=== PATIENT | male | born 1965 | race Caucasian/White ===

== ENCOUNTER 2016-06-21 08:02 | Day surgery (SDC) | payer BC ==
[2016-06-18 16:16] VITALS: BMI 40.7
--- NOTE | 2016-06-20 11:29 | HP ---
DATE OF ADMISSION: CHIEF COMPLAINT: Right knee pain. 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 He was stepping out of a shower when he felt a pop in his knee. He has had persistent pain, popping, and giving way ever since. He has tried medications in addition to an injection with only partial temporary relief. PAST MEDICAL HISTORY: Negative. CURRENT MEDICATIONS: Motrin. He denies drug allergies. FAMILY HISTORY: Significant for cancer and rheumatoid arthritis. SOCIAL HISTORY: Significant for previous tobacco use. A sixteen-point review of systems otherwise reviewed and is noncontributory. On examination, the patient is approximately 5 feet 11 inches, 280 pounds of endomorphic habitus. HEENT exam is nonfocal. Neck is supple. He has painless passive motion of the right hip. Straight leg raise is negative. Active motion of the right knee -8 to 110 degrees of flexion. He has a moderate effusion. He is tender about the medial joint line. Collaterals are stable, Oriana's negative, Efren's elicits medial pain. He has genu varum alignment. His distal neurovascular exam appears to be intact in the right lower extremity. X-rays to include weight-bearing notch, lateral, and merchant views of the right knee obtained in the office show moderate medial compartment narrowing. MRI report of the right knee shows a posterior medial meniscal tear in addition to increased signal involving the medial collateral ligament. IMPRESSION: 1. Right knee internal derangement with symptomatic medial meniscal tear. 2. Moderate right knee medial compartment osteoarthrosis. 3. Increased body mass index. RECOMMENDATIONS: I talked to the patient at length regarding his treatment options. He is having persistent pain and mechanical symptoms despite conservative measures. After thorough discussion, he opts to proceed with surgery. We will plan to proceed with arthroscopic evaluation with possible partial medial meniscectomy. Risks and benefits are discussed at length in layman's terms.
[~2016-06-21 08:02] MED LIST: DEXAMETHASONE SOD PHOSPHATE 10 MG/ML 1 ML VIAL IV ONE; LACTATED RINGERS 1,000 ML IV SCH; MIDAZOLAM 2 MG/2 ML VIAL IV PRN; ONDANSETRON 4 MG/2 ML VIAL IVP ONE; SCOPOLAMINE 1.5MG/72HR PATCH TRANSDERM ONE; ceFAZolin 3 GM in SODIUM CHLORIDE 0.9% 100 ML IVPB ONE
[2016-06-21] MEDS ORDERED: LIDOCAINE 1% 20 ML VIAL (10MG/ML) FOR IV START INTRADERMA ONE (08:42)
[2016-06-21] MEDS ORDERED: fentaNYL (PF) 50 MCG/ML 2 ML AMP ONE (09:48)
[2016-06-21] MEDS ORDERED: LIDOCAINE 1% INJ 10MG/ML (20 ML MDV) ONE (09:48)
[2016-06-21] MEDS ORDERED: MIDAZOLAM 2 MG/2 ML VIAL ONE (09:48)
[2016-06-21] MEDS ORDERED: PROPOFOL 10 MG/ML 20 ML VIAL IV ONE (09:48)
[2016-06-21] MEDS ORDERED: HYDROmorphone (PF) 1 MG/ML ONE (09:48)
[2016-06-21] MEDS ORDERED: GLYCOPYRROLATE 0.2 MG/ML 2 ML VIAL ONE (09:48)
[2016-06-21] MEDS ORDERED: diphenhydrAMINE 50 MG/ML 1 ML VIAL ONE (09:48)
[2016-06-21] MEDS: HYDROmorphone 1 MG/ML 1 ML SYRINGE IVP PRN ×4 (10:40→11:12)
--- NOTE | 2016-06-21 10:41 | P.OP ---
Date of Procedure: 06/21/16 Preoperative Diagnosis: Right knee internal derangement Postoperative Diagnosis: Right knee posterior medial meniscal tear/anterior lateral meniscal tear/grade 3 chondral injury distal lateral medial femoral condyle/large medial patellofemoral plica Procedure(s) Performed: Right knee arthroscopic partial medial meniscectomy/partial lateral meniscectomy /medial femoral chondrectomy/plica resection Anesthesia: GETA Surgeon: Jeremiah Vásquez Estimated Blood Loss (ml): 10 Pathology: none sent Condition: stable Disposition: PACU Indications for Procedure: The patient is a 51-year-old male presents with progressive right knee pain and mechanical symptoms after previous twisting injury. He tried conservative measures with persistence of his symptoms. A discussion of the risks and benefits of operative intervention versus continued conservative measures was made with the patient. He opted proceed with surgery. Operative risks to include infection, neurovascular injury, development of blood clots, possible incomplete resolution of symptoms, possible need for subsequent procedures was discussed. Informed consent was obtained. Operative Findings: As below Description of Procedure: The patient was brought to the operating room, and after induction of general anesthesia examined the right knee. Collaterals were stable, Oriana was negative, and posterior drawer was negative. The right lower extremity was prepped and draped in a normal fashion. A superior lateral portal was made through a 3 mm skin incision superior and lateral to the patella. This was used for outflow. A lateral portal was made through a 5 mm vertical skin incision lateral to the patellar tendon above the joint line. Diagnostic arthroscopy was performed. A medial portal was made through a similar incision medial to the patella tendon above the joint line. On inspection the medial compartment, he is noted have a complex tear involving the posterior horn medial meniscus in the white-white junction. This was debrided back to stable base with straight baskets and a motorized shaver. The edges were contoured. A corresponding grade 2/3 chondral injury was noted involving the distal lateral portion the medial femoral condyle. There was a loose chondral fragment debrided back to stable base with a motorized shaver. On inspection of the notch, the anterior cruciate ligament was intact. On inspection of the lateral compartment a flap tear involving the anterior aspect of the lateral meniscus in the white-white junction was noted. The posterior horn appeared to be intact. The was debrided back to a stable base with a motorized shaver. Grade 2 chondral changes were noted involving the medial portion of the lateral tibial plateau. No loose chondral fragments were noted. On inspection of the patellofemoral articulation, there was grade 2 chondral changes however no loose chondral fragments. A large plica was noted medially that appeared to impinge on the medial femoral condyle through the arc of motion. This was debrided with motorized shaver. The gutters were clear debris. The knee was then thoroughly irrigated. The portals were closed with Steri-Strips. A sterile dressing was applied in addition to a compression stocking. The patient was awoken from general anesthesia and transferred to the recovery room in good condition. Blood loss was estimated at 10 mL. No complications were incurred.
[2016-06-21 10:43] VITALS: TEMP 97.6
[2016-06-21 12:11] VITALS: RESP 18
[2016-06-21] MEDS ORDERED: HYDROcodone/APAP 10-325MG 1 EACH TAB PO ONE (12:22)
[2016-06-21 12:26] VITALS: BP 135/78; PULSE 89
== END 2016-06-21 13:00 | disposition home or self-care (01) ==
LOC: OR 08:02
PROVIDERS: ATTEND Orthopaedic Surgery
DX: S83.241A Other tear of medial meniscus, current injury, right knee, initial encounter (principal); S83.281A Other tear of lateral meniscus, current injury, right knee, initial encounter; M67.51 Plica syndrome, right knee; M23.91 Unspecified internal derangement of right knee; M17.11 Unilateral primary osteoarthritis, right knee; Z68.39 Body mass index [BMI] 39.0-39.9, adult; X58.XXXA Exposure to other specified factors, initial encounter; Y93.E1 Activity, personal bathing and showering; Y92.89 Other specified places as the place of occurrence of the external cause; Z79.1 Long term (current) use of non-steroidal anti-inflammatories (NSAID); Z79.891 Long term (current) use of opiate analgesic; Z79.899 Other long term (current) drug therapy; Z88.8 Allergy status to other drugs, medicaments and biological substances; Z87.891 Personal history of nicotine dependence
CPT/HCPCS: 29880; J2250; J1200; J1100; J0690; J2405; J2001; J3010; J1170; J2704

== ENCOUNTER 2019-08-11 12:57 | Emergency (ER) | payer BC ==
--- NOTE | 2019-08-11 13:14 | ED ---
General Adult HPI - General Stated complaint: TIA Time Seen by Provider: 08/11/19 12:58 Source: patient, EMS, RN notes reviewed Mode of arrival: EMS Limitations: no limitations - History of Present Illness Initial comments: Patient is a pleasant 54-year-old male presenting to the emergency department for change in mental status. Patient is unclear on exact onset however is aware that it was after 11 AM today. Patient states he did have a headache that is somewhat severe and started quick. Patient states this is mid frontal but does radiate towards the back. Patient states headache continues. Patient states he did become sweaty. Patient states he is having problems with his thought process. Patient states he is having problems putting things together and seems to be taking some extra time to process his thoughts. Patient did feel off balance however that has resolved. No isolated arm or leg weakness. No paresthesias. No history of similar symptoms previously. 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 - Related Data Home Medications Medication Instructions Recorded Confirmed ALPRAZolam [Xanax] 1 mg PO TID PRN 08/11/19 08/11/19 Hydrocodone/Acetaminophen [[place] 1 tab PO Q6H PRN 08/11/19 08/11/19 10-325] Rosuvastatin Calcium 10 mg PO HS 08/11/19 08/11/19 buPROPion XL [Wellbutrin Xl] 150 mg PO DAILY 08/11/19 08/11/19 Allergies Allergy/AdvReac Type Severity Reaction Status Date / Time No Known Allergies Allergy Verified 08/11/19 14:51 Review of Systems ROS Statement: Those systems with pertinent positive or pertinent negative responses have been documented in the HPI. ROS Other: All systems not noted in ROS Statement are negative. Constitutional: Denies: fever Eyes: Denies: eye pain ENT: Denies: ear pain Respiratory: Denies: cough, dyspnea Cardiovascular: Denies: chest pain Endocrine: Denies: fatigue Gastrointestinal: Denies: abdominal pain Genitourinary: Denies: dysuria Musculoskeletal: Denies: back pain Skin: Denies: rash Neurological: Reports: as per HPI, headache. 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 (last chemo and radiation tx October 2015), Spinal Stenosis and chronic back pain., Right knee pain. History of Any Multi-Drug Resistant Organisms: None Reported Past Surgical History: Appendectomy, Back Surgery Additional Past Surgical History / Comment(s): tumor removal, Lower Back surgery x2. Past Anesthesia/Blood Transfusion Reactions: No Reported Reaction Past Psychological History: No Psychological Hx Reported Smoking Status: Former smoker Past Alcohol Use History: Rare Additional Past Alcohol Use History / Comment(s): QUIT SMOKING 1 YEAR AGO. SMOKED FOR 28 YRS. SMOKED APPROX 1 PPD. Past Drug Use History: None Reported - Past Family History Mother Family Medical History: No Reported History General Exam Limitations: no limitations General appearance: alert, in no apparent distress Head exam: Present: normocephalic Eye exam: Present: normal appearance, PERRL, EOMI. Absent: nystagmus ENT exam: Present: normal oropharynx Neck exam: Present: normal inspection Respiratory exam: Present: normal lung sounds bilaterally. Absent: chest wall tenderness Cardiovascular Exam: Present: regular rate, normal rhythm Expanded Peripheral pulses: 2+: Radial (R), Radial (L), Dorsalis Pedis (R), Dorsalis Pedis (L) GI/Abdominal exam: Present: soft. Absent: tenderness Extremities exam: Present: normal inspection. Absent: pedal edema, calf tenderness Neurological exam: Present: alert, oriented X3, CN II-XII intact, other (No slurred speech. Patient does have occasional pause with speaking or thought process) Expanded Neurological exam: Present: protecting the airway Patient oriented to: Present: person, place, time Cranial nerves: EOM's Intact: Normal, Facial Sensation: Normal Sensory exam: Upper Extremity Light Touch: Normal, Lower Extremity Light Touch: Normal Motor strength exam: RUE: 5, LUE: 5, RLE: 4 (Patient states it's difficult to tell his mind keep his legs elevated), LLE: 4 (Patient states is difficult to tell his mind to keep his legs elevated) Eye Response: (4) open spontaneously Motor Response: (6) obeys commands Verbal Response: (5) oriented Psychiatric exam: Present: normal affect, normal mood Skin exam: Present: normal color Course Vital Signs 08/11/19 08/11/19 08/11/19 13:00 13:15 13:30 Temperature 97.9 F Pulse Rate 71 83 86 Respiratory 20 20 20 Rate Blood Pressure 155/90 145/70 156/84 O2 Sat by Pulse 99 96 95 Oximetry 08/11/19 08/11/19 08/11/19 13:45 14:00 15:00 Temperature 98.2 F Pulse Rate 83 82 82 Respiratory 16 18 20 Rate Blood Pressure 144/88 145/90 145/88 O2 Sat by Pulse 96 98 98 Oximetry - Reevaluation(s) Reevaluation #1: 08/11/19 13:24 Case was discussed with neural interventional list, Dr. rodriguez, who agrees patient is not a TPA candidate secondary to low NIH. He is made aware of concern for aneurysm and will review the images. 08/11/19 14:08 Call was received by radiologist with concern for subarachnoid hemorrhage. I did talk again with Dr. rodriguez, who will review films and call back. 08/11/19 14:31 Patient reevaluated and unchanged. Patient and family updated. 08/11/19 14:38 Case again discussed with Dr. Rodriguez who will work and transferred to [facility]. He will have his mid-level call back. He recommends 1 g of Keppra. Keep systolic blood pressure under 160, Cardene if needed. He did rev iew the films and does not see an obvious aneurysm. He states they do have capability to fully take care of this patient. 08/11/19 15:10 Case also discussed with practitioner Manuel who is looking for bed and will call back over the half an hour. 08/11/19 15:59 [facility] did call back with bed availability. EKG Findings - EKG Comments: EKG Findings:: Normal sinus rhythm 88. SD 188. QRS 104. QT 382. QTC 462. Normal axis. Normal QRS. No acute ST change. Medical Decision Making - Lab Data Result diagrams: 08/11/19 13:10 08/11/19 13:10 Lab Results 08/11/19 08/11/19 08/11/19 Range/Units 13:10 13:10 13:10 WBC 9.7 (3.8-10.6) k/uL RBC 5.62 (4.30-5.90) m/uL Hgb 16.6 (13.0-17.5) gm/dL Hct 50.2 (39.0-53.0) % MCV 89.3 (80.0-100.0) fL MCH 29.5 (25.0-35.0) pg MCHC 33.0 (31.0-37.0) g/dL RDW 12.8 (11.5-15.5) % Plt Count 240 (150-450) k/uL Neutrophils % 80 % Lymphocytes % 12 % Monocytes % 4 % Eosinophils % 3 % Basophils % 1 % Neutrophils # 7.8 H (1.3-7.7) k/uL Lymphocytes # 1.1 (1.0-4.8) k/uL Monocytes # 0.4 (0-1.0) k/uL Eosinophils # 0.3 (0-0.7) k/uL Basophils # 0.1 (0-0.2) k/uL PT 10.8 (9.0-12.0) sec INR 1.0 (<1.2) APTT 23.5 (22.0-30.0) sec Sodium 136 L (137-145) mmol/L Potassium 4.0 (3.5-5.1) mmol/L Chloride 102 (98-107) mmol/L Carbon Dioxide 24 (22-30) mmol/L Anion Gap 10 mmol/L BUN 20 (9-20) mg/dL Creatinine 0.93 (0.66-1.25) mg/dL Est GFR (CKD-EPI)AfAm >90 (>60 ml/min/1.73 sqM) Est GFR (CKD-EPI)NonAf >90 (>60 ml/min/1.73 sqM) Glucose 175 H (74-99) mg/dL Calcium 9.0 (8.4-10.2) mg/dL Total Bilirubin 0.6 (0.2-1.3) mg/dL AST 34 (17-59) U/L ALT 30 (4-49) U/L Alkaline Phosphatase 88 (38-126) U/L Troponin I (0.000-0.034) ng/mL Total Protein 7.5 (6.3-8.2) g/dL Albumin 4.6 (3.5-5.0) g/dL 08/11/19 Range/Units 13:10 WBC (3.8-10.6) k/uL RBC (4.30-5.90) m/uL Hgb (13.0-17.5) gm/dL Hct (39.0-53.0) % MCV (80.0-100.0) fL MCH (25.0-35.0) pg MCHC (31.0-37.0) g/dL RDW (11.5-15.5) % Plt Count (150-450) k/uL Neutrophils % % Lymphocytes % % Monocytes % % Eosinophils % % Basophils % % Neutrophils # (1.3-7.7) k/uL Lymphocytes # (1.0-4.8) k/uL Monocytes # (0-1.0) k/uL Eosinophils # (0-0.7) k/uL Basophils # (0-0.2) k/uL PT (9.0-12.0) sec INR (<1.2) APTT (22.0-30.0) sec Sodium (137-145) mmol/L Potassium (3.5-5.1) mmol/L Chloride (98-107) mmol/L Carbon Dioxide (22-30) mmol/L Anion Gap mmol/L BUN (9-20) mg/dL Creatinine (0.66-1.25) mg/dL Est GFR (CKD-EPI)AfAm (>60 ml/min/1.73 sqM) Est GFR (CKD-EPI)NonAf (>60 ml/min/1.73 sqM) Glucose (74-99) mg/dL Calcium (8.4-10.2) mg/dL Total Bilirubin (0.2-1.3) mg/dL AST (17-59) U/L ALT (4-49) U/L Alkaline Phosphatase (38-126) U/L Troponin I <0.012 (0.000-0.034) ng/mL Total Protein (6.3-8.2) g/dL Albumin (3.5-5.0) g/dL - Radiology Data Radiology results: report reviewed (CT angios shows no significant stenosis or common or internal carotid arteries. Suboptimal contrast bolus without obvious aneurysm at the level of [place]), image reviewed (Computed tomography scan of the brain shows large acute subarachnoid hemorrhage) Critical Care Time Critical Care Time: Yes Total Critical Care Time: 32 Disposition Clinical Impression: Subarachnoid hemorrhage Disposition: OTHER INSTITUTION NOT DEFINED Condition: Serious Is patient prescribed a controlled substance at d/c from ED?: No Referrals: Sebastián Byrd MD [Primary Care Provider] - 1-2 days Time of Disposition: 14:46 - Out of Hospital Transfer - Req. Specs Out of Hospital Transfer - Requested Specifics: Neurological ICU
[2019-08-11 13:26] LABS: Basophils # (A) 0.1 k/uL (0-0.2); Basophils % (A) 1 %; Eosinophils # (A) 0.3 k/uL (0-0.7); Eosinophils % (A) 3 %; HCT 50.2 % (39.0-53.0); HGB 16.6 gm/dL (13.0-17.5); Lymphocytes # (A) 1.1 k/uL (1.0-4.8); Lymphocytes % (A) 12 %; MCH 29.5 pg (25.0-35.0); MCV 89.3 fL (80.0-100.0); Monocytes # (A) 0.4 k/uL (0-1.0); Monocytes % (A) 4 %; Neutrophils # (A) 7.8 k/uL (1.3-7.7); Neutrophils % (A) 80 %; Platelet Count 240 k/uL (150-450); RBC 5.62 m/uL (4.30-5.90); RDW 12.8 % (11.5-15.5); WBC 9.7 k/uL (3.8-10.6)
[2019-08-11 13:36] LABS: ALT 30 U/L (4-49); AST 34 U/L (17-59); African American GFR (CKD) >90 (>60 ml/min/1.73 sqM); Albumin 4.6 g/dL (3.5-5.0); Alkaline Phosphatase 88 U/L (38-126); Anion Gap 10 mmol/L; Blood Urea Nitrogen 20 mg/dL (9-20); Carbon Dioxide 24 mmol/L (22-30); Chloride 102 mmol/L (98-107); Glucose 175 mg/dL (74-99); Non-African American GFR(CKD) >90 (>60 ml/min/1.73 sqM); Sodium 136 mmol/L (137-145); Total Bilirubin 0.6 mg/dL (0.2-1.3); Total Protein 7.5 g/dL (6.3-8.2)
[2019-08-11 13:40] LABS: Partial Thromboplastin Time 23.5 sec (22.0-30.0); Prothrombin Time 10.8 sec (9.0-12.0)
--- NOTE | 2019-08-11 13:50 | CT ---
EXAMINATION TYPE: CT brain wo con for TPA DATE OF EXAM: 08/11/2019 HISTORY: Neuro deficit, acute, stroke suspected CT DLP: 2178 mGycm. Automated Exposure Control for Dose Reduction was Utilized. TECHNIQUE: CT scan of the head is performed without contrast. COMPARISON: None. FINDINGS: There is extensive subarachnoid hemorrhage filling the basilar and perimesencephalic cist erns. Ventricles and sulci within normal limits in size for patient's age. Weinstein-white matter differe ntiation preserved. Dependent fluid or mucosal thickening left maxillary sinus. Patchy opacity ethmoi d sinuses bilaterally. Hypoplastic left frontal sinus. Globes are intact bilaterally. 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 IMPRESSION: Large acute subarachnoid hemorrhage. Critical findings communicated to ordering ER physician via telephone at time of dictation.
--- NOTE | 2019-08-11 14:12 | CT ---
EXAMINATION TYPE: CT angio head neck DATE OF EXAM: 08/11/2019 HISTORY: Neuro deficit, acute, stroke suspected. History of left parotid neoplasm. COMPARISON: CT neck November 30, 2015. CT IAC December 16, 2014. CT DLP: 960.9 mGycm. Automated Exposure Control for Dose Reduction was Utilized. TECHNIQUE: CTA scan of the head and neck are performed with IV Contrast, patient injected with 65 mL of Isovue 370, axial images are obtained, coronal and sagittal reformatted images are reviewed. Thre e-D reconstructed images are created on an independent workstation and reviewed. FINDINGS: Carotid/Vascular Structures: Normal 3 vessel origin from aortic arch. Right common carotid artery nancy ws normal origin from right brachiocephalic artery. No significant plaque or stenosis in common or in ternal carotid arteries bilaterally including a level of bilateral carotid bulbs. No significant plaq ue or stenosis in the external iliac arteries bilaterally. There is codominant vertebral basilar system patent to basilar junction. Less than optimal opacificat ion of the cranial arteries noted along with surrounding significant acute subarachnoid hemorrhage ma kes evaluation suboptimal. No obvious aneurysm or significant stenosis in the posterior circulation. Hypoplastic bilateral posterior communicating arteries. Anterior circulation shows no obvious aneurys m or significant focal stenosis. Patent anterior communicating artery is present. Small caliber but p atent right A1 segment redemonstrated. No obvious aneurysm at level of [place] on [address] Other: Persistent abnormal thoracic adenopathy involving visualized portion of both hilum seen in med iastinum, largest lymph node right posterior paratracheal level 2.3 x 1.6 cm axial image 17 not signi ficantly changed from November 30, 2015 CT. Background [id number] emphysematous change with stabl e 3 mm subpleural nodule anteriorly right upper lung axial image 18 and areas of reticulonodular opac ity throughout visualized upper lungs all redemonstrated. Slight dextroconvexed scoliotic curvature. Straightening of cervical spine on sagittal images with mi ld to moderate multilevel disc space narrowing. IMPRESSION: 1. No significant stenosis in common or internal carotid arteries bilaterally. 2. Suboptimal contrast bolus without obvious aneurysm at level of [place].
[2019-08-11] MEDS ORDERED: HYDROmorphone 1 MG/ML 1 ML SYRINGE IVP STA (14:30)
[2019-08-11] MEDS ORDERED: METOCLOPRAMIDE 5 MG/ML 2 ML VIAL IVP STA (14:30)
[2019-08-11] MEDS ORDERED: SODIUM CHLORIDE 0.9% 1,000 ML IV STA (14:32)
[2019-08-11] MEDS ORDERED: levETIRAcetam IV 1,000 MG in SALINE 1 100ML.BAG IVPB STA (14:37)
--- NOTE | 2019-08-11 15:06 | XR ---
EXAMINATION TYPE: XR chest 2V DATE OF EXAM: 08/11/2019 COMPARISON: Chest x-ray September 19, 2010. HISTORY: Altered mental status and weakness. TECHNIQUE: Frontal and lateral views of the chest are obtained. FINDINGS: Persistent low lung volumes with increasing reticular and reticulonodular opacities bilater ally. There is no new focal air space opacity, pleural effusion, or pneumothorax seen. The cardiac s ilhouette size remains within normal limits. The osseous structures are intact. IMPRESSION: Increasing reticular and reticulonodular opacities bilaterally could reflect edema on ba ckground chronic changes.
[2019-08-11 15:26] VITALS: PULSE 82
[2019-08-11 15:28] VITALS: RESP 20
[2019-08-11 16:07] VITALS: BP 134/65; TEMP 98.3
== END 2019-08-11 16:33 | disposition other institution (70) ==
LOC: EC 12:57
DX: I60.9 Nontraumatic subarachnoid hemorrhage, unspecified (principal); Z87.891 Personal history of nicotine dependence; Z92.21 Personal history of antineoplastic chemotherapy; Z92.3 Personal history of irradiation; Z98.890 Other specified postprocedural states; Z85.820 Personal history of malignant melanoma of skin; Z85.818 Personal history of malignant neoplasm of other sites of lip, oral cavity, and pharynx
CPT/HCPCS: 36415; 93005; 80053; 84484; 85025; 85610; 85730; 71046; 70496; 70450; 70498; 99291; 96365; 96375 ×2; 96361 ×2; J2765; J1170; J1953; Q9967

== ENCOUNTER → 2020-02-26 | Outpatient (CLI) | payer BC ==
--- NOTE | 2020-02-27 02:06 | MR ---
EXAMINATION TYPE: MR brain wo/w con DATE OF EXAM: 02/26/2020 COMPARISON: None HISTORY: Weakness. Stroke. CONTRAST: Standard multiplanar, multisequence MRI departmental protocol utilizing 13 mL intravenous gadolinium contrast. Ventricles have normal size. There is no mass effect nor midline shift. There is no sign of intracran ial hemorrhage. Diffusion images show no evidence of cortical infarct. Corpus callosum is intact. Bra instem is intact. Sella turcica is normal. There is mucosal thickening in the maxillary and ethmoid a nd frontal sinuses. Brainstem is intact. Cerebellum is intact. On the T2 and FLAIR images there are scattered foci of abn ormal increased signal in the parietal lobes at the portillo-white matter junction bilaterally that measu re up to 7 mm. Total number is approximately 15. These foci are nonenhancing and probably related to some chronic small vessel ischemia. There is no evidence of orbital mass. IMPRESSION: White matter high signal foci in both temporal parietal lobes more likely related to chronic small ve ssel ischemia. No enhancement seen to suggest metastatic disease. Sinusitis.
== END | disposition home or self-care (01) ==
LOC: RADMRIMAIN 11:50
PROVIDERS: ATTEND Psychiatry & Neurology Vascular Neurology
DX: J32.9 Chronic sinusitis, unspecified (principal)
CPT/HCPCS: 70553; A9585

== ENCOUNTER 2020-04-19 10:53 | Emergency (ER) | payer BC ==
[2020-04-19 10:59] VITALS: RESP 18
[2020-04-19] MEDS ORDERED: KETOROLAC 15 MG/ML 1 ML VIAL IM STA (11:09)
--- NOTE | 2020-04-19 11:13 | ED ---
General Adult HPI - General Chief complaint: Extremity Injury, Lower Stated complaint: Left knee injury Time Seen by Provider: 04/19/20 10:59 Source: patient, RN notes reviewed Mode of arrival: wheelchair Limitations: no limitations - History of Present Illness Initial comments: 55-year-old male presents to the emergency room for a chief complaint of left knee pain. Patient reports that 5 days ago he was shoveling snow in his driveway. He states his left knee slipped on ice and he felt a pop in his left knee. States it feels similar to the last time he tore his meniscus in his right knee. Patient states that throughout the past few days the pain has gotten worse and last night he could not go to work. This morning he decided to call his orthopedic physician who suggested he come to the emergency room for an x-ray before seeing them in office. Patient denies fevers or chills. Denies any redness or warmth to the area. Denies any previous surgeries on the left knee. States that he has been using crutches because it is painful to bear weight on the left leg.Patient has no other complaints at this time including shortness of breath, chest pain, abdominal pain, nausea or vomiting, headache, or visual changes. - Related Data Home Medications Medication Instructions Recorded Confirmed ALPRAZolam [Xanax] 1 mg PO TID PRN 08/11/19 04/19/20 Hydrocodone/Acetaminophen [[place] 1 tab PO Q6H PRN 08/11/19 04/19/20 10-325] Rosuvastatin Calcium 10 mg PO HS 08/11/19 04/19/20 lisinopriL [Prinivil] 20 mg PO DAILY 04/19/20 04/19/20 Allergies Allergy/AdvReac Type Severity Reaction Status Date / Time No Known Allergies Allergy Verified 04/19/20 11:54 Review of Systems ROS Statement: Those systems with pertinent positive or pertinent negative responses have been documented in the HPI. ROS Other: All systems not noted in ROS Statement are negative. 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 (last chemo and radiation tx October 2015), Spinal Stenosis and chronic back pain., Right knee pain. History of Any Multi-Drug Resistant Organisms: None Reported Past Surgical History: Appendectomy, Back Surgery, Orthopedic Surgery Additional Past Surgical History / Comment(s): tumor removal, Lower Back surgery x2. right knee Past Anesthesia/Blood Transfusion Reactions: No Reported Reaction Past Psychological History: No Psychological Hx Reported Smoking Status: Never smoker Past Alcohol Use History: Rare Past Drug Use History: Marijuana - Past Family History Mother Family Medical History: No Reported History General Exam Limitations: no limitations General appearance: alert, in no apparent distress Head exam: Present: atraumatic, normocephalic, normal inspection Eye exam: Present: normal appearance, PERRL, EOMI. Absent: scleral icterus, conjunctival injection, periorbital swelling ENT exam: Present: normal exam, mucous membranes moist Neck exam: Present: normal inspection, full ROM. Absent: tenderness, meningismus, lymphadenopathy Respiratory exam: Present: normal lung sounds bilaterally. Absent: respiratory distress, wheezes, rales, rhonchi, stridor Cardiovascular Exam: Present: regular rate, normal rhythm, normal heart sounds. Absent: systolic murmur, diastolic murmur, rubs, gallop, clicks GI/Abdominal exam: Present: soft, normal bowel sounds. Absent: distended, tenderness, guarding, rebound, rigid Extremities exam: Present: normal capillary refill (Capillary refill less than 2 seconds, DP pulse 2+ in the left lower extremity. Skin exam is normal.), other (sensation intact LLE). Absent: full ROM (Patient has full extension of the left knee with 60 flexion.), tenderness (No significant tenderness of the left knee. No tenderness in the left calf.), pedal edema, joint swelling (Erythema edema or increased warmth of the left knee.), calf tenderness (Negative Homans sign. No erythema or edema tenderness of the left calf.) Course Vital Signs 04/19/20 10:54 Temperature 97.8 F Pulse Rate 72 Respiratory 18 Rate Blood Pressure 125/80 O2 Sat by Pulse 100 Oximetry Medical Decision Making - Medical Decision Making HPI physical exam is documented. Patient does have 45 flexion of the left knee, full extension. Neurovascular status intact left lower extremity. No erythema or increased warmth of the left knee. Knee x-ray shows a moderate- sized joint effusion. No acute osseous abnormality. Patient was placed in a knee immobilizer. He was educated on rice therapy and Motrin and Tylenol for pain. I did discuss concern for ligamentous injury. Patient [facility] care with [facility] and will follow up with them. He will return here for any worsening symptoms. I discussed this case with attending Dr. Henao who agrees with this assessment and treatment plan. Disposition Clinical Impression: Knee pain, left, Joint effusion of knee Disposition: HOME SELF-CARE Condition: Good Instructions (If sedation given, give patient instructions): Knee Pain (ED) Additional Instructions: Please take Motrin and Tylenol for pain. If pain is severe take Tylenol 3. Do not drive or operate machinery while taking Tylenol 3. Please rest ice and elevate the left knee. Please follow-up with [facility] by calling today for an appointment. If you have any worsening symptoms such as fevers return to the emergency room. Is patient prescribed a controlled substance at d/c from ED?: No Referrals: Sebastián Byrd MD [Primary Care Provider] - 1-2 days Jeremiah Vásquez MD [STAFF PHYSICIAN] - 1-2 days Time of Disposition: 12:08
--- NOTE | 2020-04-19 11:53 | XR ---
EXAMINATION TYPE: XR knee complete LT DATE OF EXAM: 04/19/2020 COMPARISON: None HISTORY: Pain, fall TECHNIQUE: Three-view left knee FINDINGS: There is a moderate joint effusion. Anterior patellar spurring is present superiorly and in feriorly. No acute fractures are evident. Joint spaces appear preserved. IMPRESSION: 1. Moderate size joint effusion. 2. No acute osseous abnormality. Follow-up exams can be performed 7-10 days from acute trauma for con tinued pain.
[2020-04-19] MEDS ORDERED: ACET/COD 300 MG/30 MG STARTER PACK 6 TAB BTL PO STA (12:08)
[2020-04-19 12:42] VITALS: BP 122/72; PULSE 70; TEMP 98
== END 2020-04-19 12:41 | disposition home or self-care (01) ==
LOC: EC 10:53
DX: M25.462 Effusion, left knee (principal); G89.29 Other chronic pain; M54.9 Dorsalgia, unspecified; Z86.73 Personal history of transient ischemic attack (TIA), and cerebral infarction without residual deficits; Z79.899 Other long term (current) drug therapy; Z85.828 Personal history of other malignant neoplasm of skin; Z98.890 Other specified postprocedural states; Z92.21 Personal history of antineoplastic chemotherapy; Z92.3 Personal history of irradiation; W00.0XXA Fall on same level due to ice and snow, initial encounter
CPT/HCPCS: 73562; 99283; 96372; L1830 ×2; J1885

== ENCOUNTER 2020-04-21 16:07 | Emergency (ER) | payer BC ==
[2020-04-21 16:13] VITALS: TEMP 97.9
[2020-04-21] MEDS ORDERED: SODIUM CHLORIDE 0.9% 1,000 ML IV STA (16:34)
[2020-04-21] MEDS ORDERED: diphenhydrAMINE 50 MG/ML 1 ML VIAL IVP STA (16:34)
[2020-04-21] MEDS ORDERED: DIAZEPAM 5 MG/ML 2 ML INJ IVP STA (16:34)
--- NOTE | 2020-04-21 16:35 | ED ---
ENT HPI - General Chief complaint: Dental/Oral Stated complaint: CLENCHED JAW Time Seen by Provider: 04/21/20 16:18 Source: patient, family, RN notes reviewed, old records reviewed Mode of arrival: wheelchair Limitations: no limitations - History of Present Illness Initial comments: This is a 55-year-old male DF for evaluation, patient resents today regarding jaw discomfort, patient feels like he just has to clench his jaw patient has drug on both the left and the right he cannot maintain a comfortably he is able to open his mouth is able to stick his tongue out symptoms just began this afternoon it progressed. Patient does admit to anxiety mild hyperventilation is at bedside states patient does appear to be significantly anxious. Patient denies pain in hands or fingers, denies pain and feet or toes. Patient does have history of tumor removal on his left side of his neck MD complaint: other (left and right sided jaw pain) Location: throat Severity: moderate Severity scale (1-10): 4 Quality: aching Consistency: constant Improves with: none Worsens with: none Context-Epistaxis: history of similar Context- Dental: other (history of jaw surgery) Associated Symptoms: pain with swallowing - Related Data Home Medications Medication Instructions Recorded Confirmed ALPRAZolam [Xanax] 1 mg PO TID PRN 08/11/19 04/21/20 Hydrocodone/Acetaminophen [[place] 1 tab PO Q6H PRN 08/11/19 04/21/20 10-325] Rosuvastatin Calcium 10 mg PO HS 08/11/19 04/21/20 lisinopriL [Prinivil] 20 mg PO DAILY 04/19/20 04/21/20 Ibuprofen [Motrin Ib] 800 mg PO ONCE PRN 04/21/20 04/21/20 Allergies Allergy/AdvReac Type Severity Reaction Status Date / Time No Known Allergies Allergy Verified 04/21/20 18:08 Review of Systems ROS Statement: Those systems with pertinent positive or pertinent negative responses have been documented in the HPI. ROS Other: All systems not noted in ROS Statement are negative. 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 (last chemo and radiation tx October 2015), Spinal Stenosis and chronic back pain., Right knee pain. History of Any Multi-Drug Resistant Organisms: None Reported Past Surgical History: Appendectomy, Back Surgery, Orthopedic Surgery Additional Past Surgical History / Comment(s): tumor removal, Lower Back surgery x2. right knee Past Anesthesia/Blood Transfusion Reactions: No Reported Reaction Past Psychological History: No Psychological Hx Reported Smoking Status: Never smoker Past Alcohol Use History: Rare Past Drug Use History: Marijuana - Past Family History Mother Family Medical History: No Reported History General Exam - General Exam Comments Initial Comments: patient able to move mouth, but jaw pain is both left and right, difficult to move Limitations: no limitations General appearance: alert, in no apparent distress Head exam: Present: atraumatic, normocephalic, normal inspection Eye exam: Present: normal appearance, PERRL, EOMI. Absent: scleral icterus, conjunctival injection, periorbital swelling ENT exam: Present: normal exam, mucous membranes moist Neck exam: Present: normal inspection. Absent: tenderness, meningismus, lymphadenopathy Respiratory exam: Present: normal lung sounds bilaterally. Absent: respiratory distress, wheezes, rales, rhonchi, stridor Cardiovascular Exam: Present: regular rate, normal rhythm, normal heart sounds. Absent: systolic murmur, diastolic murmur, rubs, gallop, clicks GI/Abdominal exam: Present: soft, normal bowel sounds. Absent: distended, tenderness, guarding, rebound, rigid Extremities exam: Present: normal inspection, full ROM, normal capillary refill. Absent: tenderness, pedal edema, joint swelling, calf tenderness Back exam: Present: normal inspection Neurological exam: Present: alert, oriented X3, CN II-XII intact Psychiatric exam: Present: normal affect, normal mood Skin exam: Present: warm, dry, intact, normal color. Absent: rash Course Vital Signs 04/21/20 04/21/20 04/21/20 16:08 16:24 18:04 Temperature 97.9 F Pulse Rate 85 78 Respiratory 16 18 Rate Blood Pressure 199/91 143/103 112/82 O2 Sat by Pulse 96 98 Oximetry - Reevaluation(s) Reevaluation #1: 04/21/20 17:20 Medical record is reviewed Reevaluation #2: 04/21/20 17:21 Patient has significant improvement with Benadryl and valium Reevaluation #3: 04/21/20 18:13 Patient has improving symptoms here in the ER continued Reevaluation #4: 04/21/20 18:13 Patient informed results and questions answered Medical Decision Making - Medical Decision Making 5 male DF for evaluation of jaw pain difficulty moving jaw. No acute findings here in the ER CT is negative and unchanged from prior. Laboratories normal patient symptoms improved here with medication and patient can be discharged - Lab Data Result diagrams: 04/21/20 16:41 04/21/20 16:41 Lab Results 04/21/20 04/21/20 04/21/20 Range/Units 16:41 16:41 16:45 WBC 7.7 (3.8-10.6) k/uL RBC 5.66 (4.30-5.90) m/uL Hgb 16.7 (13.0-17.5) gm/dL Hct 50.0 (39.0-53.0) % MCV 88.4 (80.0-100.0) fL MCH 29.6 (25.0-35.0) pg MCHC 33.5 (31.0-37.0) g/dL RDW 13.6 (11.5-15.5) % Plt Count 248 (150-450) k/uL MPV 7.3 Neutrophils % 75 % Lymphocytes % 15 % Monocytes % 4 % Eosinophils % 4 % Basophils % 1 % Neutrophils # 5.8 (1.3-7.7) k/uL Lymphocytes # 1.1 (1.0-4.8) k/uL Monocytes # 0.3 (0-1.0) k/uL Eosinophils # 0.3 (0-0.7) k/uL Basophils # 0.1 (0-0.2) k/uL VBG pH 7.47 H (7.31-7.41) VBG pCO2 32 L (37-51) mmHg VBG HCO3 23 L (24-28) mmol/L Sodium 138 (137-145) mmol/L Potassium 4.4 (3.5-5.1) mmol/L Chloride 106 (98-107) mmol/L Carbon Dioxide 22 (22-30) mmol/L Anion Gap 10 mmol/L BUN 20 (9-20) mg/dL Creatinine 0.89 (0.66-1.25) mg/dL Est GFR (CKD-EPI)AfAm >90 (>60 ml/min/1.73 sqM) Est GFR (CKD-EPI)NonAf >90 (>60 ml/min/1.73 sqM) Glucose 129 H (74-99) mg/dL Calcium 9.5 (8.4-10.2) mg/dL Phosphorus 3.3 (2.5-4.5) mg/dL Magnesium 2.0 (1.6-2.3) mg/dL Total Bilirubin 0.6 (0.2-1.3) mg/dL AST 34 (17-59) U/L ALT 40 (4-49) U/L Alkaline Phosphatase 78 (38-126) U/L Creatine Kinase 103 (55-170) U/L Total Protein 7.9 (6.3-8.2) g/dL Albumin 4.8 (3.5-5.0) g/dL - Radiology Data Radiology results: report reviewed (CT soft tissue neck shows no dysfunction), image reviewed Disposition Clinical Impression: Jaw pain Disposition: HOME SELF-CARE Condition: Good Instructions (If sedation given, give patient instructions): Temporomandibular Disorder (ED) Is patient prescribed a controlled substance at d/c from ED?: No Referrals: Sebastián Byrd MD [Primary Care Provider] - 1-2 days
[2020-04-21 17:07] LABS: Basophils # (A) 0.1 k/uL (0-0.2); Basophils % (A) 1 %; Eosinophils # (A) 0.3 k/uL (0-0.7); Eosinophils % (A) 4 %; HGB 16.7 gm/dL (13.0-17.5); Lymphocytes # (A) 1.1 k/uL (1.0-4.8); Lymphocytes % (A) 15 %; MCH 29.6 pg (25.0-35.0); MCHC 33.5 g/dL (31.0-37.0); MCV 88.4 fL (80.0-100.0); Mean Platelet Volume 7.3; Monocytes # (A) 0.3 k/uL (0-1.0); Monocytes % (A) 4 %; Neutrophils # (A) 5.8 k/uL (1.3-7.7); Neutrophils % (A) 75 %; Platelet Count 248 k/uL (150-450); RBC 5.66 m/uL (4.30-5.90); RDW 13.6 % (11.5-15.5); WBC 7.7 k/uL (3.8-10.6)
[2020-04-21 17:10] LABS: VBG PH 7.47 (7.31-7.41)
[2020-04-21 17:20] LABS: ALT 40 U/L (4-49); AST 34 U/L (17-59); African American GFR (CKD) >90 (>60 ml/min/1.73 sqM); Albumin 4.8 g/dL (3.5-5.0); Alkaline Phosphatase 78 U/L (38-126); Anion Gap 10 mmol/L; Blood Urea Nitrogen 20 mg/dL (9-20); Calcium 9.5 mg/dL (8.4-10.2); Carbon Dioxide 22 mmol/L (22-30); Chloride 106 mmol/L (98-107); Creatine Kinase 103 U/L (55-170); Glucose 129 mg/dL (74-99); Non-African American GFR(CKD) >90 (>60 ml/min/1.73 sqM); Phosphorus 3.3 mg/dL (2.5-4.5); Potassium 4.4 mmol/L (3.5-5.1); Sodium 138 mmol/L (137-145); Total Bilirubin 0.6 mg/dL (0.2-1.3); Total Protein 7.9 g/dL (6.3-8.2)
[2020-04-21 18:07] VITALS: BP 112/82; PULSE 78; RESP 18
--- NOTE | 2020-04-21 18:07 | CT ---
EXAMINATION TYPE: CT soft tissue neck w con DATE OF EXAM: 04/21/2020 COMPARISON: 11/30/2015 HISTORY: c/o jaw pain. no injury. CT DLP: 406.9 mGycm Automated exposure control for dose reduction was used. CONTRAST: Performed with IV Contrast, patient injected with 100 mL of Isovue 300. Images were obtained from the level of the great vessels to the top of the orbits with IV contrast. There is mucosal thickening in the frontal ethmoid maxillary sinuses. The globes are symmetric. There is no evidence of orbital mass. Nasal bone is intact. The maxilla is intact. Zygomatic arches appear normal. Mandibular ring is intact. Temporomandibular j oints appear normal. There is asymmetric parotid glands. Right parotid gland much larger than the left. No discrete mass s een this apparently relates to left parotid surgery.. Submandibular salivary glands are fairly symmet carey. There is normal contrast opacification of carotid arteries and jugular veins. Prevertebral soft tissues are intact. There is minor degenerative disc changes in the lower cervical spine. Epiglottis is normal. Subglottic trachea appears normal. Tongue appears normal. There is no evidence of a pharyn geal mass. Tonsils and adenoids are fairly normal. I see no significant cervical adenopathy. Thyroid gland is symmetric. There is a prominent right paratracheal lymph node measuring 2.5 x 1.5 cm unchanged. IMPRESSION: Enlarged right paratracheal lymph node unchanged. Asymmetric large right parotid gland compared to th e left unchanged. Left parotid gland surgery. Left piriform sinus showed increased soft tissue density on the old CT scan and now appears more symm etric. No increasing mass seen.
== END 2020-04-21 18:45 | disposition home or self-care (01) ==
LOC: EC 16:07
DX: R68.84 Jaw pain (principal); R06.4 Hyperventilation; G89.29 Other chronic pain; M54.9 Dorsalgia, unspecified; Z79.899 Other long term (current) drug therapy; Z85.828 Personal history of other malignant neoplasm of skin; Z86.73 Personal history of transient ischemic attack (TIA), and cerebral infarction without residual deficits
CPT/HCPCS: 36415; 80053; 82550; 82803; 83735; 84100; 85025; 70491; 99284; 96374; 96375; 96361; J1200; J3360; Q9967

== ENCOUNTER 2020-08-25 10:21 | Day surgery (SDC) | payer BC ==
[2020-07-24 16:05] VITALS: BMI 37.8
[~2020-08-25 10:21] MED LIST changes: -DEXAMETHASONE SOD PHOSPHATE 10 MG/ML 1 ML VIAL IV ONE; -MIDAZOLAM 2 MG/2 ML VIAL IV PRN; -ONDANSETRON 4 MG/2 ML VIAL IVP ONE; -SCOPOLAMINE 1.5MG/72HR PATCH TRANSDERM ONE; -ceFAZolin 3 GM in SODIUM CHLORIDE 0.9% 100 ML IVPB ONE
[2020-08-25 11:16] VITALS: TEMP 97.8
[2020-08-25] MEDS ORDERED: LACTATED RINGERS 1,000 ML IV ONE (11:16)
[2020-08-25] MEDS ORDERED: LIDOCAINE 1% (10MG/ML) FOR IV START INTRADERMA ONE (11:28)
[2020-08-25] MEDS ORDERED: PROPOFOL 10 MG/ML 20 ML VIAL IV ONE (12:55)
--- NOTE | 2020-08-25 12:59 | P.GSHP ---
History of Present Illness H&P Date: 08/25/20 Chief Complaint: Screening colonoscopy Is a 55-year-old male who presents today for screening colonoscopy. Patient denies a significant GI complaints. 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 (last chemo and radiation tx October 2015), Spinal Stenosis and chronic back pain., Right knee pain.CEREBRAL ANEURYSM-SHORT MEMORY LOSS FOLLOWING History of Any Multi-Drug Resistant Organisms: None Reported Past Surgical History: Appendectomy, Back Surgery, Orthopedic Surgery Additional Past Surgical History / Comment(s): tumor REMOVED FROM NECK, Lower Back surgery x2. right knee-arthroscopic , Past Anesthesia/Blood Transfusion Reactions: No Reported Reaction Past Psychological History: Anxiety Additional Psychological History / Comment(s): "mood swings" Smoking Status: Former smoker Past Alcohol Use History: Rare Additional Past Alcohol Use History / Comment(s): started smoking at age 16 quit on and off quit july 2019 smoked 1ppd or less Past Drug Use History: Marijuana Additional Drug Use History / Comment(s): rare occasion - instructed to not use 24 hours prior to procedure - Past Family History Mother Family Medical History: No Reported History Medications and Allergies Home Medications Medication Instructions Recorded Confirmed Type ALPRAZolam [Xanax] 1 mg PO TID PRN 08/11/19 08/22/20 History Hydrocodone/Acetaminophen [[place] 1 tab PO Q6H PRN 08/11/19 08/22/20 History 10-325] Rosuvastatin Calcium 10 mg PO DAILY 08/11/19 08/22/20 History lisinopriL [Prinivil] 20 mg PO DAILY 04/19/20 08/22/20 History Ibuprofen [Motrin Ib] 800 mg PO ONCE PRN 04/21/20 08/22/20 History Acetaminophen Tab [Tylenol] 650 mg PO Q4H PRN 07/24/20 08/22/20 History buPROPion [Wellbutrin] 100 mg PO DAILY 07/24/20 08/22/20 History Allergies Allergy/AdvReac Type Severity Reaction Status Date / Time No Known Allergies Allergy Verified 08/22/20 10:46 Surgical - Exam Vital Signs Temp Pulse Resp BP Pulse Ox 97.8 F 78 18 180/78 98 05/07/21 11:15 08/25/20 11:15 08/25/20 11:15 08/25/20 11:15 08/25/20 11:15 - General well developed, well nourished, no distress - Eyes PERRL - ENT normal pinna - Neck no masses - Respiratory normal expansion - Cardiovascular Rhythm: regular - Abdomen Abdomen: soft, non tender Assessment and Plan Assessment: We'll perform screening colonoscopy
--- NOTE | 2020-08-25 13:17 | P.OP ---
Date of Procedure: 08/25/20 Preoperative Diagnosis: Screening colonoscopy Postoperative Diagnosis: Diverticulosis Procedure(s) Performed: Colonoscopy Anesthesia: MAC Surgeon: Narendra Tucker Pathology: none sent Condition: stable Disposition: PACU Description of Procedure: The patient's placed on the endoscopy table in the lateral position. He received IV sedation. Digital rectal exam was performed which revealed no adenopathy the possible colonoscope was then placed patient anus passed throughout the colon. The cecal valve was visualized tortuosity valve. This point scope withdrawn. The remaining ascending colon, transverse colon and descending colon appeared normal. In the sigmoid colon a few scattered diverticuli. Scope was brought back the rectum and this appeared normal. Scope was withdrawn for patient.
[2020-08-25 13:21] VITALS: RESP 16
[2020-08-25 13:35] VITALS: BP 156/80; PULSE 70
== END 2020-08-25 13:45 | disposition home or self-care (01) ==
LOC: ORWHC2ENDO 10:21
PROVIDERS: ATTEND Surgery
DX: Z12.11 Encounter for screening for malignant neoplasm of colon (principal); K57.30 Diverticulosis of large intestine without perforation or abscess without bleeding; Q43.8 Other specified congenital malformations of intestine; M19.90 Unspecified osteoarthritis, unspecified site; Z86.73 Personal history of transient ischemic attack (TIA), and cerebral infarction without residual deficits; R41.3 Other amnesia; I10 Essential (primary) hypertension; E78.5 Hyperlipidemia, unspecified; F32.9 Major depressive disorder, single episode, unspecified; F41.9 Anxiety disorder, unspecified; F39 Unspecified mood [affective] disorder; Z85.89 Personal history of malignant neoplasm of other organs and systems; Z92.21 Personal history of antineoplastic chemotherapy; Z92.3 Personal history of irradiation; G89.29 Other chronic pain; M54.9 Dorsalgia, unspecified; Z90.89 Acquired absence of other organs; Z98.890 Other specified postprocedural states; Z87.891 Personal history of nicotine dependence; Z79.1 Long term (current) use of non-steroidal anti-inflammatories (NSAID); Z79.891 Long term (current) use of opiate analgesic; Z79.899 Other long term (current) drug therapy
CPT/HCPCS: J2704; G0121; 45378

== ENCOUNTER 2020-10-15 14:47 | Emergency (ER) | payer BC ==
--- NOTE | 2020-10-15 15:18 | ED ---
General Adult HPI - General Chief complaint: Neuro Symptoms/Deficit Stated complaint: Dizziness,Sent from DR Time Seen by Provider: 10/15/20 15:07 Source: patient, RN notes reviewed, old records reviewed Mode of arrival: wheelchair Limitations: no limitations - History of Present Illness Initial comments: 55-year-old male history of intracranial hemorrhage, cerebral aneurysm presenting with an episode of confusion which was this morning at approximately 9 AM. As well as some left arm weakness. He has a previous history of intracranial hemorrhage. He is uncertain if any intervention was performed at that time. He did report a 2 out of 10 headache as well and some left arm numbness which is resolved. Patient had spoke to his neighbor who is a nurse and was instructed to come to the emergency department for evaluation. - Related Data Home Medications Medication Instructions Recorded Confirmed ALPRAZolam [Xanax] 1 mg PO TID PRN 08/11/19 08/22/20 Hydrocodone/Acetaminophen [Bokoshe 1 tab PO Q6H PRN 08/11/19 08/22/20 10-325] Rosuvastatin Calcium 10 mg PO DAILY 08/11/19 08/22/20 lisinopriL [Prinivil] 20 mg PO DAILY 04/19/20 08/22/20 Ibuprofen [Motrin Ib] 800 mg PO ONCE PRN 04/21/20 08/22/20 Acetaminophen Tab [Tylenol] 650 mg PO Q4H PRN 07/24/20 08/22/20 buPROPion [Wellbutrin] 100 mg PO DAILY 07/24/20 08/22/20 Allergies Allergy/AdvReac Type Severity Reaction Status Date / Time No Known Allergies Allergy Verified 10/15/20 14:58 Review of Systems ROS Statement: Those systems with pertinent positive or pertinent negative responses have been documented in the HPI. ROS Other: All systems not noted in ROS Statement are negative. 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 (last chemo and radiation tx October 2015), Spinal Stenosis and chronic back pain., Right knee pain.CEREBRAL ANEURYSM-SHORT MEMORY LOSS FOLLOWING History of Any Multi-Drug Resistant Organisms: None Reported Past Surgical History: Appendectomy, Back Surgery, Orthopedic Surgery Additional Past Surgical History / Comment(s): tumor REMOVED FROM NECK, Lower Back surgery x2. right knee-arthroscopic , Past Anesthesia/Blood Transfusion Reactions: No Reported Reaction Past Psychological History: Anxiety Smoking Status: Former smoker Past Alcohol Use History: Rare Past Drug Use History: Marijuana - Past Family History Mother Family Medical History: No Reported History General Exam Limitations: no limitations General appearance: alert, in no apparent distress Head exam: Present: atraumatic, normocephalic Eye exam: Present: normal appearance, PERRL ENT exam: Present: normal exam Neck exam: Present: normal inspection. Absent: tenderness, meningismus Respiratory exam: Present: normal lung sounds bilaterally. Absent: respiratory distress, wheezes Cardiovascular Exam: Present: regular rate, normal rhythm GI/Abdominal exam: Present: soft. Absent: distended, tenderness, guarding Extremities exam: Present: normal inspection, normal capillary refill. Absent: pedal edema, calf tenderness Neurological exam: Present: alert, oriented X3, CN II-XII intact, other (NIH of 0). Absent: motor sensory deficit Psychiatric exam: Present: normal affect, normal mood Skin exam: Present: warm, dry, intact. Absent: cyanosis, diaphoretic Course Vital Signs 10/15/20 10/15/20 14:58 16:00 Temperature 97.9 F Pulse Rate 79 67 Respiratory 16 18 Rate Blood Pressure 136/76 136/78 O2 Sat by Pulse 97 96 Oximetry EKG Findings - EKG Comments: EKG Findings:: Normal sinus rhythm rate of 64, NE interval 170, QRS duration 90, QTC 400, no ST segment elevation. Medical Decision Making - Medical Decision Making Surendra 55-year-old male with previous history of subarachnoid hemorrhage presenting with an episode of confusion. He's had this symptom for times over the past one year and is only sought medical attention one time. Not on any anticoagulation. Patient well-appearing with stable vitals. CT and CT angiography are performed which are negative for intracranial hemorrhage, no aneurysm or acute occlusion or stenosis. He has a normal CBC normal CMP. My initial plan was to admit this patient for MRI and neurology consultation however patient declines. He states he is very aware of his symptoms and prefers to be discharged home with return parameters. He has no headache. He has no focal findings. He states [place] lives 1 mile from EMS station and [place] from the hospital. He has good follow-up with his interventional neurologist. - Lab Data Result diagrams: 10/15/20 15:18 10/15/20 15:18 Lab Results 10/15/20 10/15/20 10/15/20 Range/Units 15:18 15:18 15:18 WBC 7.8 (3.8-10.6) k/uL RBC 4.85 (4.30-5.90) m/uL Hgb 15.0 (13.0-17.5) gm/dL Hct 42.1 (39.0-53.0) % MCV 86.7 (80.0-100.0) fL MCH 30.9 (25.0-35.0) pg MCHC 35.6 (31.0-37.0) g/dL RDW 12.7 (11.5-15.5) % Plt Count 262 (150-450) k/uL MPV 7.5 Neutrophils % 71 % Lymphocytes % 18 % Monocytes % 6 % Eosinophils % 4 % Basophils % 1 % Neutrophils # 5.6 (1.3-7.7) k/uL Lymphocytes # 1.4 (1.0-4.8) k/uL Monocytes # 0.4 (0-1.0) k/uL Eosinophils # 0.3 (0-0.7) k/uL Basophils # 0.1 (0-0.2) k/uL PT 10.5 (9.0-12.0) sec INR 1.0 (<1.2) APTT 25.4 (22.0-30.0) sec Sodium 138 (137-145) mmol/L Potassium 4.2 (3.5-5.1) mmol/L Chloride 106 (98-107) mmol/L Carbon Dioxide 24 (22-30) mmol/L Anion Gap 8 mmol/L BUN 18 (9-20) mg/dL Creatinine 0.71 (0.66-1.25) mg/dL Est GFR (CKD-EPI)AfAm >90 (>60 ml/min/1.73 sqM) Est GFR (CKD-EPI)NonAf >90 (>60 ml/min/1.73 sqM) Glucose 108 H (74-99) mg/dL Calcium 9.3 (8.4-10.2) mg/dL Total Bilirubin 0.4 (0.2-1.3) mg/dL AST 32 (17-59) U/L ALT 29 (4-49) U/L Alkaline Phosphatase 65 (38-126) U/L Troponin I (0.000-0.034) ng/mL Total Protein 6.9 (6.3-8.2) g/dL Albumin 4.3 (3.5-5.0) g/dL 10/15/20 Range/Units 15:18 WBC (3.8-10.6) k/uL RBC (4.30-5.90) m/uL Hgb (13.0-17.5) gm/dL Hct (39.0-53.0) % MCV (80.0-100.0) fL MCH (25.0-35.0) pg MCHC (31.0-37.0) g/dL RDW (11.5-15.5) % Plt Count (150-450) k/uL MPV Neutrophils % % Lymphocytes % % Monocytes % % Eosinophils % % Basophils % % Neutrophils # (1.3-7.7) k/uL Lymphocytes # (1.0-4.8) k/uL Monocytes # (0-1.0) k/uL Eosinophils # (0-0.7) k/uL Basophils # (0-0.2) k/uL PT (9.0-12.0) sec INR (<1.2) APTT (22.0-30.0) sec Sodium (137-145) mmol/L Potassium (3.5-5.1) mmol/L Chloride (98-107) mmol/L Carbon Dioxide (22-30) mmol/L Anion Gap mmol/L BUN (9-20) mg/dL Creatinine (0.66-1.25) mg/dL Est GFR (CKD-EPI)AfAm (>60 ml/min/1.73 sqM) Est GFR (CKD-EPI)NonAf (>60 ml/min/1.73 sqM) Glucose (74-99) mg/dL Calcium (8.4-10.2) mg/dL Total Bilirubin (0.2-1.3) mg/dL AST (17-59) U/L ALT (4-49) U/L Alkaline Phosphatase (38-126) U/L Troponin I <0.012 (0.000-0.034) ng/mL Total Protein (6.3-8.2) g/dL Albumin (3.5-5.0) g/dL Disposition Clinical Impression: AMS (altered mental status) Narrative: Transient confusion, resolved. Disposition: HOME SELF-CARE Condition: Fair Instructions (If sedation given, give patient instructions): Altered Mental Status (ED) Is patient prescribed a controlled substance at d/c from ED?: No Referrals: Sebastián Byrd MD [Primary Care Provider] - 1-2 days Deonte Noyola MD [STAFF PHYSICIAN] - 1-2 days Time of Disposition: 17:26
[2020-10-15 16:01] LABS: Basophils # (A) 0.1 k/uL (0-0.2); Basophils % (A) 1 %; Eosinophils # (A) 0.3 k/uL (0-0.7); Eosinophils % (A) 4 %; HCT 42.1 % (39.0-53.0); Lymphocytes # (A) 1.4 k/uL (1.0-4.8); Lymphocytes % (A) 18 %; MCH 30.9 pg (25.0-35.0); MCHC 35.6 g/dL (31.0-37.0); MCV 86.7 fL (80.0-100.0); Mean Platelet Volume 7.5; Monocytes # (A) 0.4 k/uL (0-1.0); Monocytes % (A) 6 %; Neutrophils # (A) 5.6 k/uL (1.3-7.7); Neutrophils % (A) 71 %; Platelet Count 262 k/uL (150-450); RBC 4.85 m/uL (4.30-5.90); RDW 12.7 % (11.5-15.5); WBC 7.8 k/uL (3.8-10.6)
[2020-10-15 16:20] LABS: ALT 29 U/L (4-49); AST 32 U/L (17-59); African American GFR (CKD) >90 (>60 ml/min/1.73 sqM); Albumin 4.3 g/dL (3.5-5.0); Alkaline Phosphatase 65 U/L (38-126); Anion Gap 8 mmol/L; Blood Urea Nitrogen 18 mg/dL (9-20); Calcium 9.3 mg/dL (8.4-10.2); Carbon Dioxide 24 mmol/L (22-30); Chloride 106 mmol/L (98-107); Glucose 108 mg/dL (74-99); Non-African American GFR(CKD) >90 (>60 ml/min/1.73 sqM); Sodium 138 mmol/L (137-145); Total Bilirubin 0.4 mg/dL (0.2-1.3); Total Protein 6.9 g/dL (6.3-8.2)
[2020-10-15 16:23] LABS: Potassium 4.2 mmol/L (3.5-5.1)
[2020-10-15 16:24] LABS: Partial Thromboplastin Time 25.4 sec (22.0-30.0); Prothrombin Time 10.5 sec (9.0-12.0)
[2020-10-15 16:40] VITALS: RESP 18
--- NOTE | 2020-10-15 16:54 | CT ---
EXAMINATION TYPE: CT angio head neck DATE OF EXAM: 10/15/2020 COMPARISON: 08/11/2019 HISTORY: Left sided weakness with confusion. CT DLP: 1746.9 mGycm Automated exposure control for dose reduction was used. CONTRAST: Performed with IV Contrast, patient injected with 65 mL of Isovue 370. There are 3-D post processed images. Images obtained from the aortic arch to the vertex of the brain. There is normal branching pattern of the great vessels on the aortic arch. There is bilateral arteria l flow in the subclavian arteries. There is arterial flow in the common internal and external arterie s bilaterally. There is wide patency of the carotid artery bifurcations. There is arterial flow in slick th vertebral arteries. There is no evidence of carotid or vertebral artery aneurysm or dissection. There is arterial flow in the anterior middle and posterior cerebral arteries. There is arterial flow in the vertebrobasilar artery system. There is normal contrast opacification of the venous sinuses. There is no mass effect. I see no evidence of intracranial arterial stenosis. There is no sign of ane urysm or neovascularity. IMPRESSION: Negative CT angiogram of the brain. Negative CT angiogram of the neck. No adverse change compared to old exam.
--- NOTE | 2020-10-15 16:57 | CT ---
EXAMINATION TYPE: CT brain wo con for TPA DATE OF EXAM: 10/15/2020 COMPARISON: 08/11/2019 HISTORY: Left sided weakness with confusion. CT DLP: 1746.9 mGycm Automated exposure control for dose reduction was used. Ventricles and sulci appear normal. There is no mass effect nor midline shift. There is no sign of in tracranial hemorrhage. The calvarium is intact. There is some mucosal thickening in the left mastoid sinus. There is mild mucosal thickening in the ethmoid air cells. There is fluid level left maxillary sinus. IMPRESSION: There is ethmoid and left maxillary sinusitis. There is left side mastoiditis. No acute intracranial abnormality. There is clearing of the subarachnoid hemorrhage compared to old exam.
[2020-10-15 18:01] VITALS: BP 140/79; PULSE 72; TEMP 98
== END 2020-10-15 17:58 | disposition home or self-care (01) ==
LOC: EC 14:47
DX: R41.82 Altered mental status, unspecified (principal); R42 Dizziness and giddiness; R53.1 Weakness; M19.90 Unspecified osteoarthritis, unspecified site; Z79.1 Long term (current) use of non-steroidal anti-inflammatories (NSAID); Z86.73 Personal history of transient ischemic attack (TIA), and cerebral infarction without residual deficits; Z87.891 Personal history of nicotine dependence
CPT/HCPCS: 36415; 93005; 80053; 84484; 85025; 85610; 85730; 70496; 70450; 70498; 99285; Q9967

== ENCOUNTER → 2021-08-07 | Outpatient (CLI) | payer BC ==
--- NOTE | 2021-08-07 22:33 | CTL ---
EXAMINATION TYPE: CT Low Dose Lung DATE OF EXAM ORDERED: 08/07/2021 HISTORY: Tobacco use. Lung cancer screening CT DLP: 95.[address] CTDI: 2.6 mGy Automated exposure control for dose reduction was used. SCREENING VISIT: Baseline COMPARISON: None available TECHNIQUE: Low dose computed tomography scan was performed through the chest at 1 mm thick sections a nd reconstructed images in multiple planes at 1 mm and [address] DIAGNOSTIC QUALITY: Satisfactory FINDINGS: LUNG NODULES: Diffuse upper, mid and to a lesser extent lower lung zone central reticulations, nodularity and mild changes. Calcified nodules are seen in the right lung base measuring up to 9 mm. Irregular nodule wit h spiculated margin is seen at the posterior aspect of the right lower lobe measuring 12 mm (image #1 70). The remainder of the pulmonary nodules are smaller. LUNGS: COPD: Severity: None Fibrosis: Severity: Moderate Lymph nodes: Enlarged mediastinal lymph nodes measuring up to 16 mm in the superior mediastinum and 1 9 mm in subcarinal group. Enlarged tacho probably due to underlying hilar lymphadenopathy, suboptimall y assessed by this nonenhanced CT scan. No axillary lymphadenopathy. Other findings: None RIGHT PLEURAL SPACE: Effusion: None Calcification: None Thickening: None Pneumothorax: None LEFT PLEURAL SPACE: Effusion: None Calcification: None Thickening: None Pneumothorax: None HEART: Heart Size: Normal Coronary Calcification: Mild Pericardial Effusion: None OTHER FINDINGS: Upper abdomen: None Bony thorax: No gross aggressive bone lesion. Supraclavicular region: None Other: Scattered arterial atherosclerotic calcifications. IMPRESSION: The above described pulmonary changes together with the described lymphadenopathy could b e related to pulmonary sarcoidosis. Other interstitial lung disease can't be excluded. Recommend clin ical correlation and further workup. The described 12 mm irregular nodule in the right lower lobe cou ld represent part of the interstitial lung disease however a neoplastic lesion cannot be excluded, re commend follow-up CT scan in 3 months for reassessment. Other findings as described above. CT LUNG RAD AND CT CHEST RECOMMENDATION: Lung-Rad 4A Suspicious: Follow-up 3 month LDCT or PET/CT may be used when there is a > 8 mm solid component. S Modifier (other clinically significant findings): Enlarged lymph nodes as described above.
== END | disposition home or self-care (01) ==
LOC: RADCTMAIN 17:37
PROVIDERS: ATTEND Family Medicine
DX: Z12.2 Encounter for screening for malignant neoplasm of respiratory organs (principal); Z87.891 Personal history of nicotine dependence
CPT/HCPCS: 71271

== ENCOUNTER → 2022-01-02 | Outpatient (CLI) | payer BC, OTHER ==
--- NOTE | 2022-01-02 21:06 | CT ---
EXAMINATION TYPE: CT chest w con CT DLP: 816 mGycm, Automated exposure control for dose reduction was used. DATE OF EXAM: 01/02/2022 5:41 PM COMPARISON: Chest radiograph from same day. Multiple CTs of the chest with most recent on . CLINICAL INDICATION:Male, 56 years old with history of R91.1 LUNG NODULE; PHH, Lung nodule. History of Epitheloid Hemangioendotheelioma cancer in 2015 TECHNIQUE: Multiple axial images were obtained through the chest. Sagittal and coronal reformats were created for review. Contrast used:100 ml mL of Isovue 300 with IV Contrast, none. Oral contrast used: none. FINDINGS: LUNGS/ PLEURA: No significant change in the sternal lymphadenopathy of central reticulations and nodu larity changes. There is peripheral reticulation likely representing atelectasis changes. These phan es are not significantly changed from prior. Right lower lobe medial nodular-like change measuring up to 13 mm series 3 image 34 isn't significantly changed from prior. Air cysts within the right lower lobe is unchanged. Scattered presumably intrafissural lymph nodes bilaterally noted AIRWAY: Patent and unremarkable. HEART: Size within normal limits. MEDIASTINUM: Scattered prominent and enlarged lymph nodes examples include a 16 mm in short axis righ t posterior tracheal lymph node which is unchanged from prior. Subcarinal lymph nodes measure up to 1 8 mm in short axis also present on prior. VASCULATURE: No aortic aneurysm. MUSCULOSKELETAL: No acute osseous abnormalities, multilevel disc degeneration changes are seen throug hout the spine. SOFT TISSUES/LYMPH NODES: Unremarkable. LOWER NECK: No significant findings. UPPER ABDOMEN: Left posterior fat-containing Bochdalek hernia. IMPRESSION: No significant change in the mediastinal lymphadenopathy and predominantly central reticulations and nodularity changes. There is peripheral reticulation likely representing atelectasis changes. Correla tion for interstitial lung disease including sarcoidosis is recommended.
== END | disposition home or self-care (01) ==
LOC: RADCTMAIN 16:30
PROVIDERS: ATTEND Internal Medicine Critical Care Medicine
DX: R91.1 Solitary pulmonary nodule (principal)
CPT/HCPCS: 71260; Q9967

== ENCOUNTER → 2022-08-09 | Outpatient (CLI) | payer BC, OTHER ==
--- NOTE | 2022-08-09 15:33 | CT ---
EXAMINATION TYPE: CT chest w con DATE OF EXAM: 08/09/2022 COMPARISON: 01/02/2022 HISTORY: lung mass. hx of EHE ca of neck. CT DLP: 962 mGycm, Automated exposure control for dose reduction was used. CONTRAST: Performed injected with 100 mL of Isovue 300. TECHNIQUE: Axial images were obtained at 5 mm thick sections. Reconstructed images are reviewed on [employer] computer in the coronal plane. FINDINGS: Portion of the thyroid visualized is normal. There are several punctate nodules present within the lung coronel. These are all subcentimeter and in the periphery of the lung. Some slightly more central nodules are in the right mid lung. Series 4 im ages 30-31. Small pleural based nodularities in the posterior right upper lung field. There may be so me reticular nodular pattern underlying the lung coronel operative mid lungs. Pneumonitis change in th e pneumatoceles in the right lower lobe. There is a cluster of nodules in the posterior right lung, s eries 4 image 34. Findings are similar to the comparison. Interval growth is not evident. There is a 1.4 cm nodule posterior to the trachea in the upper mediastinum. A 1.0 cm adjacent to the trachea. There are several small pretracheal lymph nodes present. There is an enlarged subcarinal no de measuring 1.5 cm. No retrocrural or upper abdominal adenopathy is evident. The ascending aorta diameter at the level of the main pulmonary artery is 3.4 cm. The main pulmonary artery diameter at the bifurcation is 2.[address] sections are obtained through the upper abdomen. Abdomen is essentially unremarkable. IMPRESSIONS: 1. Reticular nodular pattern with some additional intraparenchymal peripheral nodules, greater in num clint within the right lung. However, findings appear stable from the comparison. Continued monitoring is recommended. 2. Enlarged mediastinal adenopathy is stable comparison
== END | disposition home or self-care (01) ==
LOC: RADCTMAIN 09:32
PROVIDERS: ATTEND Internal Medicine Critical Care Medicine
DX: R91.1 Solitary pulmonary nodule (principal); R59.0 Localized enlarged lymph nodes
CPT/HCPCS: 71260; Q9967